=== PATIENT | male | born 1990 | race Caucasian/White ===

== ENCOUNTER 2022-09-27 08:34 | Outpatient (CLI) | payer OTHER, SELFPAY ==
[2022-09-27 09:57] LABS: Basophils Absolute Auto 0.1 K/mm3 (0.0-0.1); Basophils Percent Auto 0.7 % (0.2-1.2); Eosinophils Absolute Auto 0.3 K/mm3 (0-0.3); Eosinophils Percent Auto 2.8 % (0-4.4); Hematocrit 52.8 % (42.0-52.0); Hemoglobin 17.1 g/dL (14.0-18.0); Immature Granulocyte Absolute 0.05 K/mm3 (0.00-0.031); Immature Granulocyte Percent A 0.5 % (0-0.5); Lymphocytes Absolute Auto 2.65 K/mm3 (0.9-3.2); Lymphocytes Percent Auto 27.4 % (18.3-44.2); Mean Corpuscular HGB Conc 32.4 g/dl (32-36); Mean Corpuscular Hemoglobin 27.1 pg (26-34); Mean Corpuscular Volume 83.5 fl (80-100); Monocytes Absolute Auto 0.7 K/mm3 (0.1-0.6); Neutrophils Absolute Auto 5.9 K/mm3 (1.3-6.7); Neutrophils Percent Auto 61.6 % (45.5-73.1); Platelet Count Result 385 k/mm3 (150-375); Red Blood Count 6.32 M/mm3 (4.6-6.20); Red Cell Distribution Width 13.2 % (11.5-14.5); White Blood Count 9.7 K/mm3 (4.5-10.0)
[2022-09-27 11:25] LABS: Hemoglobin A1C 5.5 % (<5.7)
[2022-09-27 11:32] LABS: Vitamin D 25 Hydroxy 36.8 ng/mL
[2022-09-27 12:38] LABS: Hepatitis C Virus Antibody Negative (Negative)
[2022-09-27 18:05] LABS: Alanine Aminotransferase 44 U/L (6-50); Albumin Level 5.2 g/dL (3.5-5.1); Alkaline Phosphatase 101 U/L (38-126); Anion Gap 8 mmol/L (8-16); Aspartate Amino Transferase 41 U/L (17-59); Bilirubin,Total 0.5 mg/dL (0.2-1.3); Blood Urea Nitrogen 9 mg/dL (9-20); Calcium 9.7 mg/dL (8.4-10.2); Carbon Dioxide 29 mmol/L (22-30); Chloride 97 mmol/L (98-107); Cholesterol 197 mg/dL (0-200); Estimated Glomerular Filt Rate > 60; Glucose 75 mg/dL (65-110); HDL Direct 46 mg/dL; Potassium 4.1 mmol/L (3.4-5.0); Sodium 134 mmol/L (137-145); Triglycerides 156 mg/dL (<150)
[2022-09-27 18:16] LABS: LDL Cholesterol Direct 109 mg/dL
[2022-09-30 19:12] LABS: Hepatitis B Core Ab Total Nonreactive (Nonreactive)
[2022-10-01 10:05] LABS: HIV 1 2 Ag Ab 4th Gen w Rflxs Non-reactive (Non-reactive)
== END 2022-09-27 08:35 | disposition home or self-care (01) ==
LOC: ANHLAB 08:46
DX: Z79.899 Other long term (current) drug therapy (principal)
CPT/HCPCS: 36415; 80053; 80061; 82306; 83036; 84443; 85025; 86695; 86696; 86704; 86803; 87389; 87491; 87591; 87661